=== PATIENT | male | born 1985 | race Caucasian/White ===

== ENCOUNTER 2022-01-20 13:06 | Emergency (ER) | payer OTHER ==
[~2022-01-20] VITALS: Ht 170.2 cm; Wt 70.3 kg
[~2022-01-20 13:06] MED LIST: HYDR1TAB94 PO; PENVK500 PO
== END 2022-01-20 15:04 | disposition home or self-care (01) ==
LOC: ER 13:06
DX: L55.0 Sunburn of first degree (principal); F17.200 Nicotine dependence, unspecified, uncomplicated
CPT/HCPCS: 99283